=== PATIENT | male | born 1950 | race Caucasian/White ===

== ENCOUNTER 2017-07-26 13:31 | Emergency (ER) | payer MEDICARE ==
[2017-07-26 13:47] VITALS: BP 156/88
--- NOTE | 2017-07-26 13:55 | ED ---
Back Pain - HPI Summary HPI Summary: 67 Y/O male presents with C/O low back pain. States was injured stacking wood. Has been to primary care provider several times and was started on medication for pain (percocet, prednisone taper). Pain centralized on R lumbar area radiating towards flank. Denies LOC, leg pain, numbness, dizzyness, bowel / incontinence, and dysuria. Has consulted massage therapist and chiropractor with some relief of pain. Presents today with request for xray of spine. Medication and medical history reviewed at this visit. - History of Current Complaint Stated Complaint: BACK PAIN Time Seen by Provider: 07/26/17 13:38 Hx Obtained From: Patient Onset/Duration: Gradual Onset, Lasting Days Onset/Duration: Started Days Ago Timing: Intermittent Back Pain Location: Is Discrete @ - RLumbar spine Severity Initially: Mild Severity Currently: Moderate Pain Intensity: 5 Pain Scale Used: 0-10 Numeric Character: Dull, Aching Aggravating Symptom(s): Other - Inactivity Alleviating Symptom(s): Other - Movement Associated Signs And Symptoms: Positive: Flank Pain - Risk Factors AAA Risk Factors: Negative TAD Risk Factors: Negative Cauda Equina Risk Factors: Negative Epidural Abscess Risk Factors: Negative - Allergies/Home Medications Allergies/Adverse Reactions: Allergies Allergy/AdvReac Type Severity Reaction Status Date / Time Penicillins Allergy Anaphylatic Verified 07/26/17 13:48 Shock PMH/Surg Hx/FS Hx/Imm Hx Previously Healthy: Yes Endocrine/Hematology History: Denies: Hx Diabetes, Hx Thyroid Disease Cardiovascular History: Denies: Hx Hypertension Respiratory History: Reports: Hx Sleep Apnea - current CPAP user (compliant) Denies: Hx Asthma, Hx Chronic Obstructive Pulmonary Disease (COPD) GI History: Denies: Hx Ulcer Musculoskeletal History: Reports: Hx Gout - hx of Denies: Hx Scoliosis Sensory History: Reports: Hx Contacts or Glasses Opthamlomology History: Reports: Hx Contacts or Glasses - Cancer History Cancer Type, Location and Year: MELANOMA ON HEAD 2007 - Surgical History Surgery Procedure, Year, and Place: Tonsils as child Infectious Disease History: Yes Infectious Disease History: Reports: Hx Shingles - thigh , 2014 Denies: Hx Hepatitis, Hx Human Immunodeficiency Virus (HIV), Traveled Outside the [place] in Last 30 Days - Social History Alcohol Use: Weekly Alcohol Amount: 1-2 glasses/week Substance Use Type: Reports: None Smoking Status (MU): Former Smoker Have You Smoked in the Last Year: No Review of Systems Constitutional: Negative Cardiovascular: Negative Respiratory: Negative Gastrointestinal: Negative Genitourinary: Other Positive: flank pain Musculoskeletal: Negative Skin: Negative Neurological: Negative Psychological: Normal All Other Systems Reviewed And Are Negative: Yes Physical Exam Triage Information Reviewed: Yes Vital Signs On Initial Exam: Initial Vitals Temp Pulse Resp BP Pulse Ox 97.4 F 74 18 156/88 100 07/26/17 13:38 07/26/17 13:38 07/26/17 13:38 07/26/17 13:38 07/26/17 13:38 Vital Signs Reviewed: Yes Appearance: Positive: Well-Appearing, No Pain Distress Skin: Positive: Warm Head/Face: Positive: Normal Head/Face Inspection Eyes: Positive: Normal Neck: Positive: Nontender Respiratory/Lung Sounds: Positive: Clear to Auscultation Cardiovascular: Positive: Normal Abdomen Description: Positive: Nontender Musculoskeletal: Positive: Strength/ROM Intact Neurological: Positive: Normal Psychiatric: Positive: Normal Diagnostics - Vital Signs Vital Signs Temp Pulse Resp BP Pulse Ox 07/26/17 13:38 97.4 F 74 18 156/88 100 - Laboratory Lab Statement: Any lab studies that have been ordered have been reviewed, and results considered in the medical decision making process. Back Pain Course/Dx - Diagnoses Differential Diagnosis/HQI/PQRI: Positive: Fracture, Herniated Disc, Strain, Sprain, Other - UTI Provider Diagnoses: Low back pain Discharge - Sign-Out/Discharge Documenting (check all that apply): Discharge/Admit/Transfer - Discharge Plan Condition: Stable Disposition: HOME Patient Education Materials: Low Back Strain (ED), Lower Back Exercises (ED) Referrals: Damian Dougherty MD [Primary Care Provider] - Additional Instructions: Your spinal x ray was negative for fracture or other acute changes. Please follow up with your primary medical provider for management of continued pain. You may return to the Urgent Care as needed. - Billing Disposition and Condition Condition: STABLE Disposition: HOME
--- NOTE | 2017-07-26 14:48 | RAD ---
INDICATION: Low back pain. COMPARISON: Comparison is made with a prior study from May 25, 2013. TECHNIQUE: AP and lateral films of the lumbar spine were obtained. FINDINGS: The vertebra are in normal alignment. No fracture is seen. There is mild degenerative disc disease at the L1-L2, L2-L3 and L3-L4 levels which appears unchanged. IMPRESSION: MILD DEGENERATIVE DISC DISEASE.
== END 2017-07-26 15:11 | disposition home or self-care (01) ==
LOC: UCEAST 13:31
DX: M54.5 Low back pain (principal); Z85.820 Personal history of malignant melanoma of skin; Z88.0 Allergy status to penicillin; Z87.891 Personal history of nicotine dependence
CPT/HCPCS: 72100; 81003; 99211; G0463

== ENCOUNTER 2018-06-20 10:05 | Emergency (ER) | payer MEDICARE ==
[2018-06-20 10:17] VITALS: BP 166/94
--- NOTE | 2018-06-20 10:35 | UC ---
Lower Extremity/Ankle HPI - HPI Summary HPI Summary: History of gout with the last flareup being approximate 5 years ago. The patient's left great toe is swollen mildly erythematous and painful. - History of Current Complaint Chief Complaint: UCSkin Stated Complaint: LT TOE PAIN Time Seen by Provider: 06/20/18 10:25 Hx Obtained From: Patient Onset/Duration: Gradual Onset Severity Initially: Moderate Severity Currently: Moderate Pain Intensity: 3 Aggravating Factor(s): Ambulation Alleviating Factor(s): Rest Able to Bear Weight: Yes - Risk Factors Gout Risk Factors: Male - Patient has a history of gout with the last episode 5 years ago. He usually takes colchicine with relief. - Allergies/Home Medications Allergies/Adverse Reactions: Allergies Allergy/AdvReac Type Severity Reaction Status Date / Time shellfish derived Allergy Intermediate Hives Verified 06/20/18 10:17 Penicillins Allergy Anaphylatic Verified 06/20/18 10:17 Shock Home Medications: Home Medications Calcium Carbonate [Calcium/C/D] 1 chw PO DAILY 06/20/18 [History Confirmed 06/20] Magnesium 1 tab PO DAILY 06/20/18 [History Confirmed 06/20/18] Naproxen [Naproxen 250 mg tab] 250 mg PO ONCE PRN 06/20/18 [History Confirmed ] buPROPion SR TAB* [Wellbutrin SR TAB*] 225 mg PO EVERY OTHER DAY 06/20/18 [ History Confirmed 06/20/18] diphenhydrAMINE HCl [Benadryl Allergy] 1 tab PO QPM PRN 06/20/18 [History Confirmed 06/20/18] PMH/Surg Hx/FS Hx/Imm Hx Previously Healthy: Yes - Surgical History Surgical History: Yes Surgery Procedure, Year, and Place: Tonsils as child - Family History Known Family History: Positive: Cardiac Disease - Social History Alcohol Use: Weekly Alcohol Amount: 1-2 glasses/week Substance Use Type: None Smoking Status (MU): Former Smoker Have You Smoked in the Last Year: No When Did the Patient Quit Smoking/Using Tobacco: Review of Systems All Other Systems Reviewed And Are Negative: Yes Motor: Positive: Decreased ROM Neurovascular: Positive: Negative Musculoskeletal: Positive: Decreased ROM, Other: - Left great toe with swelling , mild erythema and tenderness on palpation. Good peripheral pulses neuro sensation capillary refill. Neurological: Positive: Negative Psychological: Positive: Negative Is Patient Immunocompromised?: No Physical Exam Triage Information Reviewed: Yes Appearance: Well-Appearing, No Pain Distress, Well-Nourished Vital Signs: Initial Vital Signs Temp 97.1 F 06/20/18 10:12 Pulse 74 06/20/18 10:12 Resp 18 06/20/18 10:12 BP 166/94 06/20/18 10:12 Pulse Ox 96 06/20/18 10:12 Vital Signs Reviewed: Yes Musculoskeletal: Positive: ROM Limited @ - Mildly limited flexion due to great toe swelling. Mild erythema with swelling. Good peripheral pulses neuro sensation capillary refill. Neurological Exam: Normal Psychological Exam: Normal Skin Exam: Normal - See above nose. Lower Extremity Course/Dx - Course Course Of Treatment: He has been comfortable here. - Differential Dx/Diagnosis Provider Diagnosis: Gout Discharge - Sign-Out/Discharge Documenting (check all that apply): Patient Departure All imaging exams completed and their final reports reviewed: No Studies - Discharge Plan Condition: Fair Disposition: HOME Prescriptions: Colchicine* [Colcrys*] 0.6 mg PO DAILY 1 Days #3 tab Patient Education Materials: Low Purine Diet (ED), Gout (ED) Referrals: Damian Dougherty MD [Primary Care Provider] - Additional Instructions: Elevate as much as possible. Follow-up with your primary care provider if no improvement on Friday. - Billing Disposition and Condition Condition: FAIR Disposition: Home - Attestation Statements Provider Attestation: I was available for consult. This patient was seen by the [facility]. The patient was not presented to, seen by, or examined by me. -Kris
== END 2018-06-20 10:48 | disposition home or self-care (01) ==
LOC: UCEAST 10:05
DX: M10.9 Gout, unspecified (principal); Z88.0 Allergy status to penicillin; Z87.891 Personal history of nicotine dependence
CPT/HCPCS: 99212; G0463

== ENCOUNTER 2019-03-27 10:37 | Emergency (ER) | payer MEDICARE ==
--- OUTSIDE RECORDS SUMMARY | 2019-03-27 10:43 | XMS REPORT | Continuity of Care Document ---
:1950 External Reference #:[id number] Author Name Dia Roberts DNP, RN, LINEN FOLDER-BC (transmitted by agent of provider Kristy Chakraborty) Address [address] [facility], [address] [place] [id number] Care Team Providers Name Role Phone Damian Dougherty MD - Endocrinology, Care Team Information Algebraist [phone] Diabetes & Metabolism Problems Active Problems Provider Date Obstructive sleep apnea syndrome Dia Roberts DNP, RN, LINEN FOLDER-BC Onset: Social History Type Date Description Comments Sex Unknown Tobacco Use Start: Unknown quit in ETOH Use Occasionally consumes alcohol Tobacco Use Start: Unknown Patient is a former End: Unknown smoker Recreational Drug Use Never Used Drugs Tobacco Use Start: Unknown light smoker Tobacco Use Start: Unknown Light tobacco smoker (10 or fewer cigarettes/day) Smoking Status Reviewed: 02/15/19 Light tobacco smoker (10 or fewer cigarettes/day) Exercise Type/Frequency Exercises regularly Exercise Type/Frequency Walks 4 times a week Stairs, canoeing, splitting firewood Allergies, Adverse Reactions, Alerts Active Allergies Reaction Severity Comments Date Penicillin 04/13/2014 Medications Active Medications SIG Qnty Indications Ordering Provider Date Wellbutrin XL 1 by mouth every 30tabs Unknown 04/12/2014 150mg day Tablets ER 24HR Magnesium once a day Unknown 04/12/2014 300mg Capsules Naprosyn 1 by mouth as 90tabs Unknown 04/12/2014 250mg Tablets needed with food Excedrin Migraine as needed Unknown 04/12/2014 Tablets Benadryl Allergy 1 tab hs prn for Unknown 25mg sleep Tablets Immunizations Description No Information Available Vital Signs Date Vital Result Comment 02/15/2019 11:05am Height 70 inches 5'10" Weight 222.00 lb Heart Rate 78 /min BP Systolic Sitting 152 mmHg Lue large cuff BP Diastolic Sitting 84 mmHg Lue large cuff O2 % BldC Oximetry 96 % On Ra BMI (Body Mass Index) 31.9 kg/m2 01/20/2018 1:31pm Height 70 inches 5'10" Weight 223.00 lb Heart Rate 60 /min BP Systolic Sitting 142 mmHg Lue large cuff BP Diastolic Sitting 80 mmHg Lue large cuff Respiratory Rate 16 /min O2 % BldC Oximetry 95 % BMI (Body Mass Index) 32.0 kg/m2 Results Description No Information Available Procedures Description No Information Available Medical Devices Description No Information Available Encounters Description No Information Available Assessments Date Code Description Provider 02/15/2019 G47.33 Obstructive sleep apnea (adult) Dia Roberts DNP, RN, LINEN FOLDER-BC (pediatric) Plan of Treatment Future Appointment(s):02/22/2020 9:45 am - Dia Roberts DNP, RN, [facility]OLDER-BC at [facility]02/15/2019 - iDa Roberts DNP, RN, LINEN FOLDER- BCG47.33 Obstructive sleep apnea (adult) (pediatric)Comments:sleep apnea tRDI 12.5/hour, AHI 37.9/hour, [facility] oxygen 83% on CPAP 12 cm AHI 0.4/hour (normal) Follow up:1 yearRecommendations:Continue PAP device, Benefitting and compliant with treatment. Cleaning Wipe off mask daily (baby wipe-no scent, or warm water ) Clean mask, tubing, filter, and water chamber weekly in mild no scent dish soap and water. Hang to dry. If you have any sleepiness while driving you MUST avoid operating a vehicle or machinery. If you have difficulty with your equipment, or need to replace your mask or hoses, please contact your homecare agency. A weight change of 20 pounds or more may have an effect onyour equipment ; if you are experiencing problems please call for an appointment. If you have any further questions, please call the [facility] at [phone]. Functional Status Description No Information Available Mental Status Description No Information Available Referrals Description No Information Available
[2019-03-27 10:51] VITALS: BP 148/87
--- NOTE | 2019-03-27 11:24 | UC ---
Respiratory Complaint HPI - HPI Summary HPI Summary: cough and chest congestion this is day 2---patient did get a flu vaccine this year, no illness exposures that he is aware of----does have chronic lyme-- - History of Current Complaint Chief Complaint: UCGeneralIllness Stated Complaint: COUGH, CHEAT CONGESTION Time Seen by Provider: 03/27/19 11:17 Hx Obtained From: Patient Onset/Duration: Sudden Onset, Lasting Days - day 2 Timing: Constant Pain Intensity: 3 Pain Scale Used: 0-10 Numeric Character: Cough: Nonproductive Aggravating Factors: Nothing Alleviating Factors: Nothing Associated Signs And Symptoms: Positive: Chills, URI - Allergies/Home Medications Allergies/Adverse Reactions: Allergies Allergy/AdvReac Type Severity Reaction Status Date / Time shellfish derived Allergy Intermediate Hives Verified 03/27/19 10:51 Penicillins Allergy Anaphylatic Verified 03/27/19 10:51 Shock PMH/Surg Hx/FS Hx/Imm Hx Previously Healthy: No - chronic lyme Psychological History: Depression - Surgical History Surgical History: Yes Surgery Procedure, Year, and Place: Tonsils as child - Family History Known Family History: Positive: Cardiac Disease - Social History Occupation: Works From/At Home Lives: With Family Alcohol Use: Weekly Alcohol Amount: 1-2 glasses/week Substance Use Type: None Smoking Status (MU): Former Smoker Have You Smoked in the Last Year: No When Did the Patient Quit Smoking/Using Tobacco: - Immunization History Most Recent Influenza Vaccination: [id number] flu season Review of Systems All Other Systems Reviewed And Are Negative: Yes Constitutional: Positive: Chills Skin: Positive: Negative Eyes: Positive: Negative ENT: Positive: Negative Respiratory: Positive: Cough Cardiovascular: Positive: Negative Gastrointestinal: Positive: Negative Genitourinary: Positive: Negative Motor: Positive: Negative Neurovascular: Positive: Negative Musculoskeletal: Positive: Negative Neurological: Positive: Negative Psychological: Positive: Negative Is Patient Immunocompromised?: No Physical Exam Triage Information Reviewed: Yes Appearance: Well-Appearing, No Pain Distress, Well-Nourished Vital Signs: Initial Vital Signs Temp 98.8 F 03/27/19 10:49 Pulse 86 03/27/19 10:49 Resp 17 03/27/19 10:49 BP 148/87 03/27/19 10:49 Pulse Ox 98 03/27/19 10:49 Vital Signs Reviewed: Yes Eye Exam: Normal Eyes: Positive: Conjunctiva Clear ENT Exam: Normal ENT: Positive: Normal ENT inspection, Hearing grossly normal, Pharynx normal, TMs normal, Uvula midline. Negative: Nasal congestion, Tonsillar swelling, Tonsillar exudate, Trismus, Muffled voice, Hoarse voice, Dental tenderness, Sinus tenderness Neck exam: Normal Neck: Positive: Supple, Nontender, No Lymphadenopathy Respiratory Exam: Normal Respiratory: Positive: Chest non-tender, Lungs clear, Normal breath sounds, No respiratory distress, No accessory muscle use Cardiovascular Exam: Normal Cardiovascular: Positive: RRR, No Murmur, Pulses Normal, Brisk Capillary Refill Musculoskeletal Exam: Normal Musculoskeletal: Positive: Strength Intact, ROM Intact, No Edema Neurological Exam: Normal Neurological: Positive: Alert, Muscle Tone Normal Psychological Exam: Normal Skin Exam: Normal Diagnostics - Laboratory Lab Results: influenza A + Respiratory Course/Dx - Course Course Of Treatment: discussed the pros and cons of tamiflu---patient would like to take it as the concerns about chronic immune suppression with lyme, patient will follow with pcp this week - Differential Dx/Diagnosis Provider Diagnosis: Influenza A, Hypertension Discharge ED - Sign-Out/Discharge Documenting (check all that apply): Patient Departure All imaging exams completed and their final reports reviewed: No Studies - Discharge Plan Condition: Stable Disposition: HOME Prescriptions: Oseltamivir CAP* [Tamiflu CAP*] 75 mg PO BID #10 cap Patient Education Materials: Influenza (ED), Hypertension (ED) Referrals: Damian Dougherty MD [Primary Care Provider] - 1 Week - Billing Disposition and Condition Condition: STABLE Disposition: Home - Attestation Statements Scribe Documentation Reviewed: Yes Provider Attestation: I was available for consult. This patient was seen by the [facility]. The patient was not presented to, seen by, or examined by me. -Kris
[2019-03-27 11:36] LABS: Influenza A Molecular POSITIVE (Negative)
== END 2019-03-27 11:53 | disposition home or self-care (01) ==
LOC: UCEAST 10:37
DX: J11.1 Influenza due to unidentified influenza virus with other respiratory manifestations (principal); I10 Essential (primary) hypertension; Z91.013 Allergy to seafood; Z88.0 Allergy status to penicillin; Z87.891 Personal history of nicotine dependence
CPT/HCPCS: 99212; G0463